=== PATIENT | female | born 1990 | race Caucasian/White ===

== ENCOUNTER 2016-10-12 20:50 | Emergency (ER) | payer SELFPAY ==
[~2016-10-12] VITALS: Ht 147.3 cm; Wt 59.0 kg
[~2016-10-12 20:50] MED LIST: DSS100 PO; IBUP-1152 PO; IRON1TAB96 PO; PREN1TAB47 PO
[2016-10-12 21:02] VITALS: BP 124/85; PULSE 69; RESP 17; O2SAT 99
--- NOTE | 2016-10-12 21:54 | ED.REPORT ---
HPI-Syncope Date of Service October 12, 2016 ED Provider: Mohan Lake MD 26 y/o female with no pertinent hx presents to the ED complaining of mild headache after losing consciousness just prior to arrival. The pt states she suddenly felt nauseous, dizzy and sat down on her knees. She then lost consciousness. As per the pt's friend, she saw the pt lose consciousness and does not think the pt hit her head. The pt had her eyes open, had full body convulsions and was unresponsive for about 30seconds to 1 minute. When she woke up, she had experienced epistaxis and was oriented to person but not place. Her symptoms lasted for about 2 minutes before she was normal again. The pt denies anything unusual prior to her sx. She also denies chest pain and palpations prior to LOC. The pt also denies being diagnosed with anemia but states she tends to be very cold and has heavy periods. Currently the pt has a mild headache and is fatigued. She states she had similar sx 10 years ago when she lost consciousness and was convulsing for 2 minutes after she slammed her finger into a door. The pt is concerned about the cost of today's visit and does not want too many tests done. Nursing Notes Stated Complaint: FAINTED,SHAKING,CONFUSION Chief Complaint: General Complaint Nursing Notes Reviewed: Yes (Harvest, Around Knowledge not reconciled) Allergies: Coded Allergies: No Known Allergies (Unverified Allergy, 02/22/11) Scheduled Docusate Sod-Expunged Drug, Do Not Renew! (Docusate Sod-Expunged Drug, Do Not Renew!) 100 Mg Capsule 100 MG PO BID Iron &Iron Asp Gly/Fa/Mv,Min38 (Iron Tablet) 1 Each Tablet 1 EACH PO DAILY Vit/Fe Fumarate/Fa-Expunged Drug, Do (-Expunged Drug, Do Not Renew!) 1 Tab Tablet PO DAILY Scheduled PRN IBUPROFEN-Expunged Drug, Do Not Renew! (IBUPROFEN-Expunged Drug, Do Not Renew!) 800 Mg Tablet 800 MG PO Q8 PRN PRN General Time Seen by Provider: 21:51 Chief Complaint Lost consciousness Syncope Description: First episode Hx Obtained From: Patient Arrived By: Walk-in Onset Occurred: Just prior to arrival Symptom Duration: 1 - 15 minutes Progression Since Onset: Resolved Severity: Current: No pain currently Severity: Maximum: No pain Recent Healthcare: No recent doctor visit Similar Sx Previous: Yes (Ten years ago) Past Medical History Past Medical History none reported Past Surgical History none reported Smoking History Unknown if Ever Smoker Social History Alcohol Use: Denies alcohol use Drug Use: Denies drug use Other Social History: Good social support Ambulatory Status Independent Review of Systems Reports: disoriented to place (resolved) Reports: full body convulsions while fainted (resolved) Constitutional: Reports: Fatigue Ears / Nose / Throat: Reports: Nose bleeding (while passed out, resolved) Cardiovascular: Denies: Chest pain, Palpitations GI: Reports: Nausea (resolved) Neurologic: Reports: Change LOC, Dizziness (resolved), Headache (Mild) Complete sys rev & neg: except as marked. Physical Exam Initial Vital Signs Vital Signs (First) Date Time Temp Pulse Resp B/P Pulse Ox O2 Delivery O2 Flow Rate FiO2 10/12/16 21:02 37.3 69 17 124/85 99 Room Air Initial VS: Reviewed, Vital signs normal Head / Eyes: Atraumatic, Normocephalic Neck: Supple, Non-tender, Full range of motion Abdomen / GI: Soft, Non-tender Upper Extremities: Vascular intact, Neuro intact, No swelling, No tenderness Skin: Warm, Dry, No cyanosis General/Constitutional: Awake, Alert, No acute distress, Well appearing, Cooperative Respiratory / Chest: Atraumatic, Breath sounds NL, Breath sounds = bilat, No respiratory distress, No rales, No rhonchi, No wheezing Cardiovascular: Heart rate NL, Regular rhythm, Heart sounds NL, No gallop, No murmurs, No rubs, Cap refill not delayed Lower Extremity / Pelvis / MS: Atraumatic, Full range of motion, No deformity, Neurologic intact, Vascular intact Neurologic: Oriented X3, Speech NL, No motor deficits, No sensory deficits ENT: Atraumatic, Airway patent, Mucous membranes moist, Tympanic membs NL, Gums /dentition NL Some left over blood in left nare. Did not bite her tounge Interpretation & Diagnostics Lab Results Interpretation Result Diagram: 10/12/162219 Test 10/12/16 22:20 White Blood Count 10.7th/mm3 (3.8-10.1) Red Blood Count 4.24mil/mm3 (3.90-5.20) Hemoglobin 13.0g/dL (12.0-15.6) Hematocrit 36.5% (35.0-46.0) Mean Corpuscular Volume 86.1fL (81-100) Mean Corpuscular Hemoglobin 30.7pg (27.0-35.0) Mean Corpuscular Hemoglobin Concent 35.6% (32.0-37.0) Red Cell Distribution Width 12.5% (12.3-15.4) Platelet Count 208bil/L (150-400) Hold Urine Received (Received) Hold Davis Top Tube Received (Received) Lab Results Interpretation: CBC normal no anemia negative ECG Interpretation ECG Interpretation: Normal sinus rhtyhm. Rate 65. No prior EKG for comparison. Time: 22:17 Interpreted by: ED physician Re-Eval/Medical Decision Med Decision/Clinical Course This is a healthy 26-year-old female had a witnessed episode of syncope. She had a few seconds of warning symptoms and tried to lay herself down on the floor but did not make it. She passed out and had some mild myoclonic jerks for a few seconds, but that had rapid full recovery to normal baseline status without a postictal phase within a couple minutes. She has had an episode of syncope years ago that was vasovagal induced. She has had no chest pain, shortness of breath. She is concerned about anemia. She is not certain if she might be . Vitals and clinically parents well. She has no heart murmurs. She has no risk factors for PE. An EKG was normal. She really did not want any laboratory testing not clearly indicated she is a private pay, so after discussion with obtained a CBC to evaluate for anemia which was negative. And a urine which was negative. The patient is asymptomatic, ambulatory and has no findings of significant injury (trace blood in the left nostril, no active epistaxis, no signs of significant nasal fracture or facial injury or head injury._ Reassurance is provided. Patient is discharged in good condition. Return precautions were reviewed. Source of Hx: Old records Re-Evaluation/Progress : Time of Eval: 22:36 Re-Evaluation/Progress Note: Rechecked pt. Discussed lab results and diagnosis. Informed the pt of the plan to discharge. Pt understands and agrees with plan. F/U instructions and RTER warning given. All questions addressed. Counseled Regarding: Diagnosis, Lab results, Need for follow-up, When/why to return to ED Discharge & Departure Impression: Primary Impression: Syncope Syncope type: unspecified Qualified Code: R55 - Syncope and collapse Disposition: Home Discharge Condition All VS Reviewed: Yes Additional Instructions: 1. Her EKG was normal-no findings of a cardiac cause of the syncope. ("Syncope " is the medical term for passing out). 2. You are not . 3. Your blood tests were normal and you are not anemic. 4. Syncope is extremely common and is generally benign. Additional testing is not indicated or necessary at this time. Activities as tolerated. 5. Return if new or worsened symptoms occur. Referrals: [facility] Scribe Attestation Portions of this note were transcribed by Con Correa. I, , personally performed the history, physical exam and medical decision-making;I reviewed and confirmed the accuracy of the information in the transcribed note. Signed by Ko Ann. 10/12/16 [id number] copies to: [facility] Mohan Lake MD October 12, 2016 21:54 Con Correa October 12, 2016 22:03
[2016-10-12 22:24] LABS: Mean Corpuscular Hemoglobin 30.7 pg (27.0-35.0); Mean Corpuscular Volume 86.1 fL (81-100)
[2016-10-12 23:00] VITALS: BP 111/70; PULSE 63; RESP 16; O2SAT 99
== END 2016-10-12 23:00 | disposition home or self-care (01) ==
LOC: SED 20:50
DX: R55 Syncope and collapse (principal); R42 Dizziness and giddiness; R53.83 Other fatigue; R11.0 Nausea; R51 Headache; R04.0 Epistaxis